=== PATIENT | male | born 1990 | race Caucasian/White ===

== ENCOUNTER 2019-04-13 13:55 | Inpatient (IN) | payer OTHER ==
[~2019-04-13] VITALS: Ht 190.5 cm; Wt 109.1 kg
[~2019-04-13 13:55] MED LIST: ACETAMINOPHEN-1 EAC1 PO; LIPITOR20 MG PO; MELATONIN1 MG PO; TYLENOL325 MG PO; XARELTO20 MG PO
[2019-04-13 14:10] VITALS: BP 117/78
[2019-04-13 14:10] LABS: ABSOLUTE NEUTROPHILS 5.4 thou/uL (1.4-8.2); BASOPHILS 0.8 % (0.0-2.0); EOSINOPHILS 1.4 % (0.0-3.0); HEMATOCRIT 46.2 % (42.0-52.0); HEMOGLOBIN 15.9 gm/dL (14.0-18.0); MCH 29.8 pg (26.0-34.0); MCHC 34.4 g/dL (28.0-37.0); MCV 86.8 fL (80.0-100.0); MONOCYTES 8.6 % (1.0-8.0); PLATELET COUNT 215 thou/uL (150-400); POLYS 62.2 % (36.0-66.0); RBC 5.32 mil/uL (4.50-6.00); RDW 13.2 % (10.5-14.5); WBC 8.6 thou/uL (4.0-11.0)
[2019-04-13 14:17] LABS: ANION GAP 9 mmol/L (7-16); BUN 11 mg/dL (7-18); CALCIUM 7.8 mg/dL (8.5-10.1); CHLORIDE 108 mmol/L (98-107); CO2 26 mmol/L (21-32); CREATININE 1.1 mg/dL (0.7-1.3); GLUCOSE 81 mg/dL (74-106); SODIUM 143 mmol/L (136-145)
--- NOTE | 2019-04-13 14:18 | NUR ---
HEPARIN DOSING SHEET REQUESTED FROM PHARMACY
[2019-04-13 14:23] LABS: APTT 53.9 Seconds (24.5-32.8); INR 1.1
[2019-04-13 14:28] LABS: ALBUMIN 3.4 g/dL (3.4-5.0); SGOT 41 U/L (15-37); SGPT 85 U/L (30-65); TOTAL BILIRUBIN 1.2 mg/dL (<0.1-1.0); TOTAL PROTEIN 6.4 g/dL (6.4-8.2); TROPONIN-I <0.06 ng/mL (<0.06)
[2019-04-13 15:47] VITALS: BP 139/74
[2019-04-13 15:51] VITALS: BP 137/74
[2019-04-13 16:45] VITALS: BP 121/73
--- NOTE | 2019-04-13 18:27 | NUR ---
PATIENT ADMITTED TO CCU UNIT WITH MONITOR SHOWING AFLUTTER WITH RATE IN THE 50'S. HEPARIN AND CARDIZEM DRIPS INFUSING. ASSESSMENT COMPLETED. ORDERING DIET VIA PHONE UPON ARRIVAL TO THE UNIT. DENIES CHEST PAIN. TYLENOL GIVEN FOR C/O HEADACHE.
[2019-04-13 19:39] VITALS: BP 114/64
[2019-04-13 20:00] VITALS: BP 112/64
[2019-04-14] VITALS (19 sets, daily range): BP systolic 107–136; BP diastolic 64–82
--- NOTE | 2019-04-14 03:47 | NUR ---
ASSUMED PT CARE AT 1900. PT A/OX4, VITAL SIGNMS STABLE, ASSESMENT CHARTED. HR ON THE MONITOR BETWEEN 40-30'S. CARDIZEM DRIP STOPPED, HR MAINTAINED IN 40'S WHILE AWAKE AND 30'S WHEN ASLEEP. AT ABOUT 2030, PT COMPLAINED OF CHEST PAIN. VITALS STABLE, 2L 02 GIVEN, NITRO GIVEN WHICH SEEMED TO HELP. CHEST PAIN RESOLVED AFTER SECOND TAB OF NITRO. PT NPO AFTER MIDNIGHT FOR ROSHNI, RESTED WELL THROUGH THE NIGHT. PROGRESSING TOWARD PLAN OF CARE. WILL CONTINUE TO MONITOR.
--- NOTE | 2019-04-14 07:35 | NUR ---
SIGNED CONSENT FOR ROSHNI, REMAINED NPO SINCE 2400. ATRIAL FLUTTER WITH SLOW VENTRICULAR RATE, L SIDED CHEST DISCOMFORT 2/10, DIZZY, 2L/NC. SHACKLED TO BED, 2 POLICE MARSHALLS AT BEDSIDE.
--- NOTE | 2019-04-14 07:35 | NUR ---
PT TO INTERVENTIONAL CARDIOLOGY SHACKLED TO BED WITH MONITOR, INTERVENTIONAL MANAGER INDUSTRIAL AND 2 POLICE MARSHALLS ACCOMPANYING.
--- NOTE | 2019-04-14 09:07 | TEE ---
[facility] [address] [place] [address] TRANSESOPHAGEAL ECHOCARDIOGRAM Name: FLOYD COSBY Room #: 200-I ADM IN .R.#: [id number] Admission: 04/13/19 Attend Phys: Neeraj Ragsdale Discharge: Date of : 88 Date of Service: 04/14/19906 Report #: [id number] THIS REPORT FOR: //name// APPROVED REPORT Study performed: 04/14/2019 08:12:06 EXAM: Transesophageal Echocardiogram with Doppler and cardioversion Patient Location: In-Patient Room #: 200 Status: routine BSA: 2.37 HR: 55 bpm BP: 115/74 mmHg Rhythm: Atrial Flutter Other Information Study Quality: Excellent Indications Atrial Flutter Echo Enhancing Agent Indication: Rule out Shunt Agent(s) / Amount(s) Used: Agitated Saline 7 cc Procedure After obtaining informed consent, patient underwent transesophageal echo in the [employer]. Type of Sedation : Conscious Sedation Sedation was achieved intravenously with: Versed (4 mg) Fentanyl (200 mcg) Transesophageal probe was inserted and advanced into esophagus without difficulty by Tashi Choi MD. Echo enhancement indication: R/O Septal defect. Echo enhancement agent administered: Agitated Saline The ROSHNI was performed without complications. Synchronized Cardioversion acheived with 50 Joules after 1 attempt(s). Rhythm following Synchronized Cardioversion: Normal Sinus Rhythm Throughout the procedure, the blood pressure, pulse oximetry, cardiac rhythm, and rate were monitored. The patient tolerated the procedure without adverse effects. Recovery from conscious sedation was uneventful and vital signs were [facility] [address] [place] [address] TRANSESOPHAGEAL ECHOCARDIOGRAM Name: HARDY BAUTISTAFLOYD Room #: 200-I ADM IN M.R.#: [id number] Admission: 04/13/19 Attend Phys: Neeraj Ragsdale Discharge: Date of : 88 Date of Service: 04/14/19 0907 Report #: [id number] stable. Left Ventricle The left ventricle is normal size. There is normal LV segmental wall motion. There is normal left ventricular wall thickness. The left ventricular systolic function is normal. The left ventricular ejection fraction is within the normal range. LVEF is 50-55%. Right Ventricle The right ventricle is normal size. The right ventricular systolic function is normal. Atria Left atrium is at the upper limits of normal. No thrombus is visualized in the left atrium or appendage. No shunting by contrast bubble injection Right atrium is dilated. Aortic Valve The aortic valve is normal in structure. No aortic regurgitation is present. There is no aortic valvular stenosis. Mitral Valve The mitral valve is normal in structure. Mild mitral regurgitation. No evidence of mitral valve stenosis. Tricuspid Valve The tricuspid valve is normal in structure. Unable to assess PA pressure. Pulmonic Valve The pulmonary valve is normal in structure. There is no pulmonic valvular regurgitation. Great Vessels The aortic root is normal in size. The ascending aorta is normal in size. IVC is normal in size and collapses >50% with inspiration. Pericardium There is no pericardial effusion. Critical Notification Physician Notified Date: 04/14/2019 <Conclusion> [facility] [place] [address] TRANSESOPHAGEAL ECHOCARDIOGRAM Name: FLOYD COSBY Room #: 200-I ADM IN ..#: [id number] Admission: 04/13/19 Attend Phys: Neeraj Ragsdale Discharge: Date of : 88 Date of Service: 04/14/19906 Report #: [id number] The left ventricular systolic function is normal. There is normal LV segmental wall motion. LVEF is 50-55%. Both atria at the upper limits of normal in size. No thrombus is visualized in the left atrium or appendage. No shunting by contrast bubble injection The aortic valve is normal in structure. No aortic regurgitation or stenosis The mitral valve is normal in structure. Mild mitral regurgitation. There is no pericardial effusion. Successful cardioversion of atrial flutter to sinus rhythm following a single biphasic synchronous Joule shock <ELECTRONICALLY SIGNED> By: Tashi Choi MD, [facility] 04/14/19906 6 6 Tashi Choi MD, FACC /INF
--- NOTE | 2019-04-14 09:13 | EKG ---
[address] [address] ELECTROCARDIOGRAM REPORT Name: FLOYD COSBY Room #: 200-I ADM IN M.R.#: [id number] Admission: 04/13/19 Attend Phys: Neeraj Freitas Discharge: Date of : 88 Report #: [id number] THIS REPORT FOR: //name// [facility] ED Test Date: 2019-04-13 Test Time: 14:02:46 Pat Name: FLOYD BAUM Department: Room: 200 Gender: M Retail General Manager: BEATRIS : 1990 Requested By: Francesco Stanton Order Number: [id number] MD: Jordi Lynch Measurements Intervals [place] Rate: 72 P: UT: QRS: 70 QRSD: 109 T: 18 QT: 457 QTc: 501 Interpretive Statements Atrial flutter Inferolateral infarct, acute Electronically Signed On 04-14-2019 9:13:01 CDT by Jordi Lynch [email or web address] <ELECTRONICALLY SIGNED> By: Jordi Lynch MD 04/14/19 0913 1402 1402 oJrdi Lynch MD /JASSON
[2019-04-14] MEDS ORDERED: XARELTO20 MG PO (14:42)
[2019-04-14] MEDS ORDERED: FLECAINIDE ACET50 M2 PO (14:42)
--- NOTE | 2019-04-14 16:01 | EKG ---
[place] [address] Fwd: [facility] [place] [address] ELECTROCARDIOGRAM REPORT Name: FLOYD COSBY Room #: 200-I ADM IN M.R.#: [id number] Admission: 04/13/19 Attend Phys: Neeraj Freitas Discharge: Date of : 88 Report #: [id number] THIS REPORT FOR: //name// [facility] Test Date: 2019-04-14 Test Time: 10:50:17 Pat Name: FLOYD BAUM Department: Room: 200 I Gender: M Security Administrator: BONITA : 1990 Requested By: Sarah Madrid Order Number: [id number] MD: Jordi Lynch Measurements Intervals [place] Rate: 69 P: 35 MI: 194 QRS: 46 QRSD: 117 T: 4 QT: 407 QTc: 436 Interpretive Statements Sinus rhythm Consider right atrial enlargement Nonspecific intraventricular conduction delay ST elev, probable normal early repol pattern Compared to ECG 04/13/2019 14:02:46 Electronically Signed On 04-14-2019 16:01:27 CDT by Jordi Lynch [email or web address] <ELECTRONICALLY SIGNED> By: Jordi Lynch MD 04/14/19 1601 1050 1050 Jordi Lynch MD /EPI
--- NOTE | 2019-04-14 19:30 | NUR ---
IN AFTERNOON, WHEN PT AWARE OF PLAN TO TRANSFER BACK TO [facility], HE HAD AN EMESIS. ZOFRAN IV GIVEN WITH PT RESTING, THEN HE CONTINUED TO SPIT UP EMESIS CONSISTING OF CLEAR FLUID WITH VERY SCANT AMOUNT OF BLOOD. VIVIENNE THOMAS APRN SPOKE WITH GENOVEVA KING AT [facility]. VIVIENNE CONFIRMED THAT PT WOULD BE ABLE TO RECEIVE ALL THE MEDICATIONS, HAVE EKG, HAVE FOLLOW UP APPT WITH CARDIOLOGY- EVERYTHING REQUIRED. COMMUNICATED ALL THIS TO DR. CARRION IN 3-4 PHONE CALLS THROUGHOUT AFTERNOON TO REQUESTING COMPLETION OF DISCHARGE ORDERS. HANDY STUDENT ACCOUNTS MANAGER, CALLED SANDY FISCHER, DIRECTOR OF CASE MANAGEMENT AND GLASS EDGER DIRECTOR PER DR. CARRION'S REQUEST TO CONFIRM VIVIENNE THOMAS HAD ALL THE MEDICATION FOR A MONTH DURATION. RN CONFIRMED THIS ALREADY WAS COMPLETED BY VIVIENNE COSTA. AALIYAH CALLED RN, THEN DR. CARRION CALLED RN. FOLLOWED MARTHA'S MEDICATION PLAN FOR DISCHARGE. WHEN PT GIVEN MEDS, HE STARTED TO HAVE AN EMESIS. RN TOLD HIM NOT TO HAVE AN EMESIS AND KEEP THE MEDS DOWN. NO FURTHER EMESIS. KEPT PT AND 2 IVONALLS UPDATED ON PLAN FOR AND DELAY IN DISCHARGE.
--- NOTE | 2019-04-15 16:18 | NUR ---
PATIENT DC LAST EVENING TO [facility]. PLANNED OUTLINED BY CARDIOLOGY IN PROGRESS NOTE FOR MEDICATIONS AND F/U CARE. PATIENTS CHART COPY REMAINED IN UNIT AND NOT TAKEN BY RANDY. SP WITH [facility] AND FAXED INFORMATION.
== END 2019-04-14 21:09 | DRG 310 ==
LOC: ER 13:55 → EROBS 15:18 → 2N 15:52
PROVIDERS: Emergency Medicine; ADMIT Hospitalist
PROC: 5A2204Z Restoration of Cardiac Rhythm, Single (ICD-10-PCS; principal; 2019-04-14)
PROC: B24BZZ4 Ultrasonography of Heart with Aorta, Transesophageal (ICD-10-PCS; principal; 2019-04-14)
DX: I48.92 Unspecified atrial flutter (principal); I48.91 Unspecified atrial fibrillation; E78.00 Pure hypercholesterolemia, unspecified; B19.20 Unspecified viral hepatitis C without hepatic coma; F17.210 Nicotine dependence, cigarettes, uncomplicated; Z91.14 Patient's other noncompliance with medication regimen; Z79.899 Other long term (current) drug therapy; Z82.49 Family history of ischemic heart disease and other diseases of the circulatory system; Z71.6 Tobacco abuse counseling
CPT/HCPCS: 10081